=== PATIENT | male | born 1965 ===

== ENCOUNTER 2022-01-14 11:05 | Inpatient (IN) | payer OTHER ==
[~2022-01-14] VITALS: Ht 182.9 cm; Wt 100.8 kg
--- NOTE | 2022-01-14 13:03 | NUR ---
DR THOMAS AT BEDSIDE
[2022-01-14 13:07] LABS: Hematocrit 19.9 % (37.0-53.0); Hemoglobin 6.7 g/dL (13.5-17.5); Mean Corpuscular HGB 28.8 pg (26.0-34.0); Mean Corpuscular HGB Conc 33.7 g/dL (31.5-36.5); Mean Corpuscular Volume 85 fL (80-100); Mean Platelet Volume 9.2 fL (9.1-12.4); NRBC ABSOLUTE 0.03 K/mm3 (0.00-0.02); NRBC Auto 0.2 /100 WBC (0.0-0.2); Platelet Count 261 K/mm3 (150-400); RDW Coefficient Variation 16.2 % (11.7-14.2); RDW Standard Deviation 49.8 fL (35.1-46.3); Red Blood Cell Count 2.33 M/mm3 (4.30-5.90); White Blood Cell Count 12.13 K/mm3 (4.00-11.30)
--- NOTE | 2022-01-14 13:08 | NUR ---
DR JAMES CALLED AND NOTIFIED OF PT ARRIVAL
[2022-01-14 13:10] LABS: Source, Urine Foley catheter
[2022-01-14 13:28] LABS: Albumin, Blood 1.6 g/dL (3.4-5.0); Albumin/Globulin Ratio 0.9 (0.8-1.8); Bilirubin, Total 0.6 mg/dL (0.1-1.0); Bun/Creatinine Ratio 36.5 (12.0-20.0); Calcium, Blood 7.1 mg/dL (8.5-10.1); Creatinine, Blood 0.74 mg/dL (0.60-1.20); Globulin, Blood 1.7 g/dL (2.2-4.0); Potassium, Blood 4.9 mmol/L (3.5-5.5); Total Protein, Blood 3.3 g/dL (6.4-8.2)
[2022-01-14 14:00] LABS: International Normalized Ratio 1.3; Prothrombin Time Results 13.4 Sec (9.7-11.5)
[2022-01-14 14:04] LABS: BAND PERCENT MAN 11 % (0-8); BASOPHILS PERCENT MAN 0 % (0-2); EOSINOPHILS PERCENT MAN 0 % (0-6); LYMPHOCYTES ABSOLUTE MAN 1.21 K/mm3 (0.84-5.20); LYMPHOCYTES PERCENT MAN 10 % (21-46); METAMYELOCYTE ABSOLUTE MAN 0.12 K/mm3 (0.00-0.00); METAMYELOCYTE PERCENT MAN 1 % (0-0); MONOCYTES PERCENT MAN 5 % (4-13); MYELOCYTE PERCENT MAN 5 % (0-0); NEUTROPHILS ABSOLUTE MAN 9.58 K/mm3 (1.96-9.15); SEG NEUTROPHILS PERCENT MAN 68 % (41-73); TOTAL CELLS COUNTED 100
--- NOTE | 2022-01-14 14:37 | NUR ---
INTUBATION: 1437 TIME OUT 1438 4 MG VERSED PUSHED BY IAN PEÑALOZA 1438 40 [address]OF[address] PUSHED BY DR JETT 1439 60 MG PROPOFOL PUSHED BY DR JETT 1440 8.0 ETT 23 AT LIP 1440 PROPOFOL DRIP STARTED AT 30; VERSED 2 MG PUSHED
[2022-01-14 14:40] LABS: Appearance, Urine Cloudy (Clear); Bilirubin, Urine Neg (Neg); Blood, Urine 5+ (Neg); Glucose Qualitative, Urine 4+ (Neg); Ketones, Urine 3+ (Neg); Leukocyte Esterase, Urine 2+ (Neg); Nitrite, Urine Neg (Neg); Protein, Urine 3+ (Neg); Urobilinogen, Urine NORM (Normal)
--- NOTE | 2022-01-14 14:43 | NUR ---
200 MCG OF PHENYLEPHRINE PUSHED IV BY [facility]
[2022-01-14 15:30] LABS: Color, Urine Other (P-Yellow)
[2022-01-14 15:32] LABS: Bacteria Mod /hpf; Red Blood Cells, Urine TNTC /hpf (0-2); Squamous Epithelial Cells Few /hpf (Few)
--- NOTE | 2022-01-14 15:50 | NUR ---
INTO ICU PATIENT INTUBATED AT THIS TIME. CONSCENT GOTTEN BY TWO PHYSICIANS DR JAMES AND DR JETT
--- NOTE | 2022-01-14 16:02 | NUR ---
01/14/22 1602 Robel Sharma History, Chart, Medications and Allergies reviewed before start of procedure. PATIENT IN ICU 4 INTUBATED TURNWED TO LEFT FOR PROCEDURE. ICUN RN PRESENT FOR PROCEDURE.
[2022-01-14] MEDS ORDERED: NITR.4SL SL (17:02)
[2022-01-14] MEDS ORDERED: NORT25 PO (17:10)
[2022-01-14] MEDS ORDERED: ONDA4 PO (17:11)
[2022-01-14] MEDS ORDERED: OXAYDO5 M2 PO (17:12)
[2022-01-14] MEDS ORDERED: PANT40 PO (17:13)
[2022-01-14] MEDS ORDERED: Prednisone10 MG PO (17:14)
[2022-01-14] MEDS ORDERED: PRED FORTE5 M1 BOTHEYES (17:14)
[2022-01-14] MEDS ORDERED: PROC5 PO (17:15)
[2022-01-14] MEDS ORDERED: TORS10 PO (17:15)
[2022-01-14] MEDS ORDERED: SPIR25 PO (17:15)
[2022-01-14 18:45] LABS: Hematocrit 21.3 % (37.0-53.0); Hemoglobin 7.9 g/dL (13.5-17.5)
--- NOTE | 2022-01-14 19:19 | NUR ---
SHIFT SUMMARY: pt transferred to ICU 4 from outside hospital as direct admit. At outside hospital pt received 5 units PRBC (with 1 additional en route), 2 FFP, and 1 cryo. NEURO: upon arrival pt neurologically intact. Upon intubation pt required several doses of PRN versed for elevated respiratory rate into high 30s. temperature trending up. ice packs and fan in place. Dr Ray informed of hyperthermia CARDIAC: sinus tachycardia in 130's. BP managed with levophed and vasopressin. RESPIRATORY: pt on 4L NC at home. Arrived on 6L NC, complaining of SOB. Lung sounds coarse. He was intubated; current vent settings AC/VC 16/400/5/40% GI/: two large bloody BMs with red clots prior to rectal tube placement. Rectal tube irrigated with water. Temp prob sensing ortiz placed at outside hospital. Red tinged urine noted initially and pt complained of painful urination/insertion. OG tube placed after EGD per Cory's verbal order. SKIN: no breakdown noted. Healing incision from right chest port placement. FLUIDS: right chest mediport accessed. IVF running at 150. Sandostatin at 25 mls/hr. Pt received an additional 2 units PRBC and platelets in ICU today. PSYCH/SOCIAL: pt very anxious prior to intubation. Family notified of pt status by physician.
[2022-01-14 20:28] LABS: PCO2 Arterial 40.6 mmHg (35-45); PO2 Arterial 109 mmHg (80-100); pH Blood Arterial 7.36 (7.35-7.45)
[2022-01-14 20:31] LABS: Hematocrit 25.6 % (37.0-53.0); Hemoglobin 9.1 g/dL (13.5-17.5)
--- NOTE | 2022-01-14 23:33 | NUR ---
PATIENTS BP DROPPED AFTER ADMINISTERING VERSED IVP. TITRATED LEVOPHED PER EMAR
--- NOTE | 2022-01-14 23:34 | NUR ---
PATIENT IS MORE COMPLIANT WITH VENT AND BP TRENDING UP. TITRATED LEVOPHED PER EMAR. TEMPERATURE IS ALSO TRENDING DOWN. UPDATED CHARGE NURSE OF PATIENTS STATUS FOR PENDING TRANSFER
--- NOTE | 2022-01-14 23:40 | NUR ---
[address] HO AT [facility]. RECIEVED BED. CALL TO [facility] FOR TRANSFER. DR JETT PLACING COBRA TRANSFER ORDERS
--- NOTE | 2022-01-14 23:45 | NUR ---
UPDATED FAMILY ABOUT PATIENTS PENDING TRANSFER TO [facility]. TALKED TO REAL MANN (PATIENTS SON).
[2022-01-15 00:09] LABS: SARS-Cov-2 (COVID-19) PCR, MMC NEGATIVE (NEGATIVE)
--- NOTE | 2022-01-15 00:45 | NUR ---
PATIENT TRANSFERRED VIA [facility] (GROUND) AT THIS TIME. REPORT PROVIDED TO ACCEPTING [facility] NURSING STAFF (ANJANA JARAMILLO). NOTIFED SON OF PATIENT (REAL MANN) OF PATIENT TRANSFER
== END 2022-01-15 00:45 | disposition short-term general hospital (02) | DRG 377 ==
LOC: ICUE 11:05
PROVIDERS: Family Medicine; Internal Medicine Critical Care Medicine; Internal Medicine Gastroenterology; ADMIT Hospitalist
PROC: 3E033XZ Introduction of Vasopressor into Peripheral Vein, Percutaneous Approach (ICD-10-PCS; 2022-01-14)
PROC: 0W3P8ZZ Control Bleeding in Gastrointestinal Tract, Via Natural or Artificial Opening Endoscopic (ICD-10-PCS; principal; 2022-01-14 16:00)
DX: K92.2 Gastrointestinal hemorrhage, unspecified (principal); R57.8 Other shock; C25.0 Malignant neoplasm of head of pancreas; J96.11 Chronic respiratory failure with hypoxia; J44.9 Chronic obstructive pulmonary disease, unspecified; G89.29 Other chronic pain; I25.10 Atherosclerotic heart disease of native coronary artery without angina pectoris; E11.9 Type 2 diabetes mellitus without complications; I50.9 Heart failure, unspecified; I11.0 Hypertensive heart disease with heart failure; F10.20 Alcohol dependence, uncomplicated; Z99.81 Dependence on supplemental oxygen; Z95.5 Presence of coronary angioplasty implant and graft; Z92.21 Personal history of antineoplastic chemotherapy; Z87.891 Personal history of nicotine dependence; Z79.4 Long term (current) use of insulin; Z79.84 Long term (current) use of oral hypoglycemic drugs
CPT/HCPCS: 31500; 36415; 36430; 36600; 71045; 76705; 80053; 81001; 82330; 82803; 82947; 84484; 85014; 85018; 85025; 85610; 85730; 86850; 86900; 86901; 86923; 87086; 93005; 93010; 94002; 94640; 94664; A9270; C9113; J0171; J0696; J1430; J1815; J2250; J2354; J2370; J2704; J3010; J3411; J7030; J7050; J7060; P9016; P9035; P9047; U0004